=== PATIENT | female | born 1940 | race Caucasian/White ===

== ENCOUNTER 2025-08-28 10:59 | Outpatient (REF) | payer MEDICARE, SELFPAY ==
--- OUTSIDE RECORDS SUMMARY | 2025-08-28 13:24 | XMS_ITS | Encounter Summary ---
Author Organization [facility] Address [address] [facility] [address] [place] [address] Phone Care Team Providers Care Business Solutions Analyst Name Role Phone Doris Michelle MD Primary Care Provider [phone] Sharri Rivera MD Unavailable [phone] Lexx Duarte DO Primary Care Provider Encounter Details Date Type Department Care Team (Late st Contact Info) Description 09/13/2022 Procedure Pass [facility], Ct Scan - [address] [address] Social History Tobacco Use Types Packs/Day Years Used Date Smoking Tobacco: Former Cigarettes Q uit: 1984 Smokeless Tobacco: Never Alcohol Use Standard Drinks/Week Comments Not Currently 0 (1 standard drink = 0.6 oz pur e alcohol) Comments No Sex and Gender Information Value Date Recorded Sex Assigned at Female 06/29/2021 11:50 AM EDT Legal Sex Female 10:12 PM EDT Gender Identity Female 06/29/2021 11:50 AM EDT Sexual Orientation Not on file documented as of this encounter Functional Status * Calculated C-SSRS Risk Score (Lifetime/Recent) Answer Date of Assessment Author No Risk Indicated 09/14/2022 1:15 AM Zohra Olivarez RN * [place] Suicide Severity Rating Scale (Screener/Recent Self-Report) Question Answer Date of Assessment Author 1. Wish to be (Past 1 Month) No 09/14/2022 1:15 AM Kp Singh RN 2. Non-Specific Active Suici abdias Thoughts (Past 1 Month) No 09/14/2022 1:15 AM Brien Singh, HAILEE 6. Suicidal Behavior (Lifetime) No 1:15 AM Zohra Singh, HAILEE documented as of this encounter Plan of Treatment Upcoming Encounters Date Type Department Care Team (Late st Contact Info) Description 04/28/2025 Procedure Pass [facility] [address] [address] 10/28/2025 2:00 PM EST Appointment [facility] [address] [address] Golden Molina, DO [address] [place] [address] 11/07/2025 11:30 AM EST Office Visit [facility] [address] [place] [address] Unknown, Unknown, Lana Lu PA-C [address] [address] [email or web address] 11/18/2025 12:45 PM EST Office Visit [facility] [address] [place] [address] 3rd Floor, [address] [place] [address] Golden Molina DO [address] [address] documented as of this encounter Visit Diagnoses Not on filedocumented in this encounter Care Teams Business Solutions Analyst Relationship Specialty Start Date End Date Doris Michelle MD [address] [place] [address] PCP - General Family Medicine 06/17/1908/24 Lexx Duarte DO [address] [address] PCP - General Family Medicine 09/20/23 Sharri Rivera MD [address] [place] [address] [email or web address] Geriatric Medicine 09/11/23 documented as of this encounter Additional Source Comments The information contained in this document represents components of the legal health record. It is not the complete legal health record.[facility]
--- OUTSIDE RECORDS SUMMARY | 2025-08-28 13:24 | XMS_ITS | Encounter Summary ---
Author Organization [facility] Address [address] [facility] [address] [place] [address] Phone Care Team Providers Care Senior Product Analyst Name Role Phone Doris Michelle MD Primary Care Provider [phone] Sharri Rivera MD Unavailable [phone] Lexx Duarte DO Primary Care Provider Encounter Details Date Type Department Care Team (Late st Contact Info) Description 09/13/2022 Procedure Pass [facility], Ct Scan - [address] [address] Social History Tobacco Use Types Packs/Day Years [...] 09/14/2022 1:15 AM Zohra Olivarez RN * [place] Suicide Severity Rating Scale (Screener/Recent Self-Report) Question [...] Info) Description 04/28/2025 Procedure Pass [facility] [address] [address] 10/28/2025 2:00 PM EST Appointment [facility] [address] [address] Golden Molina, DO [address] [place] [address] [email or web address] 11/07/2025 11:30 AM EST Office Visit [facility] [address] [place] [address] Unknown, Unknown, Lana Lu PA-C [address] [address] [email or web address] 11/18/2025 12:45 PM EST Office Visit [facility] [address] [place] [address] 3rd Floor, [address] [place] [address] Golden Molina DO [address] [address] [email or web address] documented as of this encounter Visit Diagnoses Not on filedocumented in this encounter Care Teams Senior Product Analyst Relationship Specialty Start Date End Date Doris Michelle MD [address] [place] [address] [email or web address] PCP - General Family Medicine 06/17/1908/24 Lexx Duarte DO [address] [address] PCP - General Family Medicine 09/20/23 Sharri Rivera MD [address] [place] [address] [email or web address] Geriatric Medicine 09/11/23 documented as of this encounter Additional Source Comments The information contained in this document represents components of the legal health record. It is not the complete legal health record.[facility]
--- OUTSIDE RECORDS SUMMARY | 2025-08-28 13:24 | XMS_ITS | Encounter Summary ---
Author Organization [facility] Address [address] [facility] [address] [place] [address] Phone Care Team Providers Care Acid Purifier Name Role Phone Doris Michelle MD Primary Care Provider [phone] Sharri Rivera MD Unavailable [phone] Lexx Duarte DO Primary Care Provider Encounter Details Date Type Department Care Team (Late st Contact Info) Description 08/08/2022 Procedure Pass [facility], Ct Scan - [address] [address] Social History Tobacco Use Types Packs/Day Years [...] on file documented as of this encounter Plan of Treatment Upcoming Encounters Date Type Department Care Team (Late st Contact Info) Description 04/28/2025 Procedure Pass [facility] [address] [place] [address] 10/28/2025 2:00 PM EST Appointment Echo [facility] [address] [place] [address] Golden Molina, DO [address] [address] 11/07/2025 11:30 AM EST Office Visit [facility] 10 [place] [address] Unknown, Unknown, Lana Lu PA-C [address] [address] [email or web address] 11/18/2025 12:45 PM EST Office Visit [facility] 22 [facility] 3rd Floor, [address] [place] [address] Golden Molina, DO [address] [address] documented as of this encounter Visit Diagnoses Not on filedocumented in this encounter Care Teams Acid Purifier Relationship Specialty Start Date End Date Doris Michelle MD [address] [place] [address] [email or web address] PCP - General Family Medicine 06/17/1908/24 Lexx Duarte DO [address] [address] PCP - General Family Medicine 09/20/23 Sharri Rivera MD [address] [place] [address] [email or web address] Geriatric Medicine 09/11/23 documented as of this encounter Additional Source Comments The information contained in this document represents components of the legal health record. It is not the complete legal health record.[facility]
--- OUTSIDE RECORDS SUMMARY | 2025-08-28 13:24 | XMS_ITS | Encounter Summary ---
Author Organization [facility] Address [address] [facility] [address] [place] [address] Phone Care Team Providers Care Insolvency Consultant Name Role Phone Doris Michelle MD Primary Care Provider [phone] Sharri Rivera MD Unavailable [phone] Lexx Duarte DO Primary Care Provider [phone] Reason for Referral * MRI/CAT Scan - Closed Specialty Diagnoses / Procedures Referred By Contjoan t Referred To Contact Radiology Diagnoses Tinnitus, unspecified laterality Repeated falls Other abnormalities of gait and mobility Procedures MRI Brain Doris Michelle MD Phone: tel: fax: [email or web address]:[email or web address] Referral ID Status Reason Start Date Expiration Date Visits Re quested Visits Authorized [id number] Closed 12/11/2019 12/10/2020 1 1 Encounter Details Date Type Department Care Team (Latest Contact Info) Description 12/11/2019 Transcribe Orders Virtual Department [address] [place], [place] [id number] Doris Michelle MD [address] [place], [place] [id number] [email or web address] Tinnitus, unspecified laterality (Primary Dx); Repeated falls; Other abnormalities of gait and mobility Social History Tobacco Use Types Packs/Day Years Used Date Smoking Tobacco: Former Cigarettes Q uit: 1984 Smokeless Tobacco: Never Comments Unknown Sex and Gender Information Value Date Recorded Sex Assigned at Female 06/29/2021 11:50 AM EDT Legal Sex Female 10:12 PM EDT Gender Identity Female 06/29/2021 11:50 AM EDT Sexual Orientation Not on file documented as of this encounter Plan of Treatment Upcoming Encounters Date Type Department Care Team (Late st Contact Info) Description 04/28/2025 Procedure Pass [facility] [address] [place] [address] 10/28/2025 2:00 PM EST Appointment [facility] [address] [place] [address] Golden Molina DO [address] [place] [address] 11/07/2025 11:30 AM EST Office Visit [facility] 10 [place] [address] Unknown, Unknown, Lana Lu PA-C [address] [address] [email or web address] 11/18/2025 12:45 PM EST Office Visit [facility] [address] [place] [address] 3rd Floor, [address] [place] [address] Golden Molina DO [address] [place] [address] documented as of this encounter Results * MRI BRAIN WITH AND WITHOUT CONTRAST (12/20/2019 4:19 PM EST) Anatomical Region Laterality Modality Head Magnetic Resonan ce 12/20/2019 4:35 PM EST Impressions 12/20/2019 4:57 PM EST 1. No enhancing mass within either cerebellopontine angle cistern or internal auditory canal. 2. Loops of both anterior inferior cerebellar arteries extend into the internal auditory canals. 3. Moderate patchy T2 hyperintense signal is noted within the supratentorial white matter and cody. These probably represent chronic microangiopathic/small vessel ischemic change. POS - [id number] Narrative 12/20/2019 4:57 PM EST MRI BRAIN WITH AND WITHOUT CONTRAST Outside Radiology Order tinnitus. TECHNIQUE: MRI of the brain was performed without and with intravenous gadolinium contrast material utilizing multiple pulse sequences 12/20/2019. IAC sequences were obtained. COMPARISON: No prior studies are available for comparison at the time of interpretation. FINDINGS: BRAIN: The flow voids through the [place] are maintained, and there is no restricted diffusion or abnormal susceptibility artifact. Patchy T2 hyperintense signal within the supratentorial white matter and cody are present. The ventricles are normal in size. Mild prominence of the sulci. No extra-axial fluid collection, and the cervicomedullary junction is unremarkable. On the axial FIESTA images, loops of both anterior inferior cerebellar arteries extending into the internal auditory canals. These are degraded by patient motion. The postcontrast images through the internal auditory canals are also degraded by motion, but no definite enhancing lesion is present within either cerebellopontine angle cistern or internal auditory canal. There is no abnormal intracranial enhancement. ORBITS: Unremarkable. EXTRACRANIAL SOFT TISSUES: Unremarkable. Procedure Note Myles Mitchell MD - 12/20/2019 MRI BRAIN WITH AND WITHOUT CONTRAST Outside Radiology Order tinnitus. TECHNIQUE: MRI of the brain was performed without and with intravenousgadolinium contrast material utilizing multiple pulse [id number]/28/2020. IAC sequences were obtained. COMPARISON: No prior studies are available for comparison at the time ofinterpretation. FINDINGS: BRAIN: The flow voids through the [place] are maintained, andthere is no restricted diffusion or abnormal susceptibility artifact.Patchy T2 hyperintense signal within the supratentorial white matter andpons are present. The ventricles are normal in size. Mild prominence of the sulci. Noextra-axial fluid collection, and the cervicomedullary junction isunremarkable. On the axial FIESTA images, loops of both anterior inferior cerebellararteries extending into the internal auditory canals. These are degradedby patient motion. The postcontrast images through the internal auditorycanals are also degraded by motion, but no definite enhancing lesion ispresent within either cerebellopontine angle cistern or internal auditorycanal. There is no abnormal intracranial enhancement. ORBITS: Unremarkable. EXTRACRANIAL SOFT TISSUES: Unremarkable. IMPRESSION: 1. No enhancing mass within either cerebellopontine angle cistern orinternal auditory canal. 2. Loops of both anterior inferior cerebellar arteries extend into theinternal auditory canals. 3. Moderate patchy T2 hyperintense signal is noted within thesupratentorial white matter and cody. These probably represent chronicmicroangiopathic/small vessel ischemic change. POS - [id number] Doris Michelle MD IMG MR HEAD/NECK Final Re sult documented in this encounter Visit Diagnoses Diagnosis Tinnitus, unspecified laterality- Primary Repeated falls Other abnormalities of gait and mobility Tinnitus, unspecified laterality Repeated falls Other abnormalities of gait and mobility documented in this encounter Care Teams Insolvency Consultant Relationship Specialty Start Date End Date Doris Michelle MD [address] [place] [address] [email or web address] PCP - General Family Medicine 06/17/1908/24 Lexx Duarte DO [address] [address] PCP - General Family Medicine 09/20/23 Sharri Rivera MD [address] [place] [address] [email or web address] Geriatric Medicine 09/11/23 documented as of this encounter Additional Source Comments The information contained in this document represents components of the legal health record. It is not the complete legal health record.[facility]
--- OUTSIDE RECORDS SUMMARY | 2025-08-28 13:24 | XMS_ITS | Encounter Summary ---
Author Organization [facility] Address [address] [facility] [address] [place] [address] Phone Care Team Providers Care Mold Hoister Name Role Phone Katerin Toussaint MD Primary Care Provider [phone] Doris Michelle MD Primary Care Provider [phone] Sharri Rivera MD Unavailable [phone] Lexx Duarte DO Primary Care Provider [phone] Encounter Details Date Type Department Care Team (Late st Contact Info) Description 11/19/2018 Procedure Pass OR Admitting Dept - Virtual Department 30 [place] [address] Social History Tobacco Use Types Packs/Day Years [...] Info) Description 04/28/2025 Procedure Pass [facility] [address] [place] [address] 10/28/2025 2:00 PM EST Appointment Echo Lab [address] [place] [address] Golden Molina, 22 [facility] [address] [place] [address] 11/07/2025 11:30 AM EST Office Visit [facility] 10 [place] [address] Unknown, Unknown, Lana Lu PA-C [address] [address] [email or web address] 11/18/2025 12:45 PM EST Office Visit [facility] 22 [facility] 3rd Floor, [address] [place] [address] Golden Molina DO [address] [address] documented as of this encounter Visit Diagnoses Not on filedocumented in this encounter Care Teams Mold Hoister Relationship Specialty Start Date End Date Katerin Toussaint MD [email or web address] PCP - General 08/08/17 06/16/19 Doris Michelle MD [address] [place] [address] [email or web address] PCP - General Family Medicine 06/17/1908/24 Lexx Duarte DO [address] [address] PCP - General Family Medicine 09/20/23 Sharri Rivera MD [address] [place] [address] [email or web address] Geriatric Medicine 09/11/23 documented as of this encounter Additional Source Comments The information contained in this document represents components of the legal health record. It is not the complete legal health record.[facility]
--- OUTSIDE RECORDS SUMMARY | 2025-08-28 13:24 | XMS_ITS | Encounter Summary ---
Author Organization [facility] Address [address] [facility] [address] [place] [address] Phone Care Team Providers Care Waste Water Plant Operator Name Role Phone Katerin Toussaint MD Primary Care Provider [phone] Doris Michelle MD Primary Care Provider [phone] Sharri Rivera MD Unavailable [phone] Lexx Duarte DO Primary Care Provider Encounter Details Date Type Department Care Team (Latest Contact Info) Description 06/07/2018 Transcribe Orders Virtual Department 30 [place] [address] Carlos Latham MD [address] [place] [address] [place] [phone] Pre-operative examination (Primary Dx) Social History Tobacco Use Types Packs/Day Years [...] Info) Description 04/28/2025 Procedure Pass [facility] [place] [address] [place] [address] 10/28/2025 2:00 PM EST Appointment [facility] [address] [place] [address] Silvestre Molina, DO 22 [facility] [address] [place] [address] 11/07/2025 11:30 AM EST Office Visit [facility] [address] [place] [address] Unknown, Unknown, Lana Lu PA-C [address] [address] [email or web address] 11/18/2025 12:45 PM EST Office Visit [facility] [address] [place] [address] 3rd Floor, [address] [place] [address] Silvestre Molina, DO 22 [facility] [address] [place] [address] documented as of this encounter Results * ECG 12-LEAD (06/27/2018 1:42 PM EDT) Ventricular Rate EKG/MIN 68 BPM [facility] Atrial Rate 68 BPM [facility] SD Interval 150 ms [facility] QRS Duration 128 ms [facility] QT Interval 462 ms [facility] QTC Interval 491 ms [facility] P Hubbard 41 degrees [facility] R Wave Hubbard -64 degrees [facility] T Wave [place] 53 degrees [facility] 06/27/2018 1:42 PM EDT 06/29/2018 8:43 AM EDT Narrative [facility] - 06/29/2018 8:43 AM EDT Normal sinus rhythm Right bundle branch block Left anterior fascicular block Bifascicular block Moderate voltage criteria for LVH, may be normal variant Cannot rule out Septal infarct (cited on or before 08-APR-2014) Abnormal ECG When compared with ECG of 08-APR-2014 13:48, Questionable change in initial forces of Septal leads T wave inversion no longer evident in Inferior leads Confirmed by SILVESTRE GUTIERREZ MD ([id number]) on 06/29/2018 8:43:34 AM Carlos Latham MD ECG ORDERABLES Final Result [facility] documented in this encounter Visit Diagnoses Diagnosis Pre-operative examination- Primary Unspecified pre-operative examination Pre-operative examination Unspecified pre-operative examination documented in this encounter Care Teams Waste Water Plant Operator Relationship Specialty Start Date End Date Katerin Toussaint MD [email or web address] PCP - General 08/08/17 06/16/19 Doris Michelle MD [address] [place] [address] [email or web address] PCP - General Family Medicine 06/17/1908/24 Lexx Duarte DO [address] [address] PCP - General Family Medicine 09/20/23 Sharri Rivera MD [address] [place] [address] [email or web address] Geriatric Medicine 09/11/23 documented as of this encounter Additional Source Comments The information contained in this document represents components of the legal health record. It is not the complete legal health record.[facility]
--- OUTSIDE RECORDS SUMMARY | 2025-08-28 13:24 | XMS_ITS | Encounter Summary ---
Author Organization [facility] Address [address] [facility] [address] [place] [address] Phone Care Team Providers Care Circular Sawyer Helper Name Role Phone Katerin Toussaint MD Primary Care Provider [phone] Doris Michelle MD Primary Care Provider [phone] Sharri Rivera MD Unavailable [phone] Lexx Duarte DO Primary Care Provider [phone] Encounter Details Date Type Department Care Team (Late st Contact Info) Description 06/13/2019 Ancillary Orders Virtual Department 30 [place], [place] [id number] System, Provider Not In, [place] [address] Social History Tobacco Use Types Packs/Day Years [...] Encounters Date Type Department Care Team (Late Contact Info) Description 04/28/2025 Procedure Pass [facility] [address] [place] [address] 10/28/2025 2:00 PM EST Appointment Echo Lab [address] [place] [address] Golden Molina DO 22 [facility] [address] [place] [address] 11/07/2025 11:30 AM EST Office Visit [facility] 10 [place] [address] Unknown, Unknown, Lana Lu PA-C [address] [address] [email or web address] 11/18/2025 12:45 PM EST Office Visit [facility] 22 [facility] 3rd Floor, [address] [place] [address] Golden Molina, DO [address] [address] documented as of this encounter Visit Diagnoses Not on filedocumented in this encounter Care Teams Circular Sawyer Helper Relationship Specialty Start Date End Date Katerin Toussaint MD [email or web address] PCP - General 08/08/17 06/16/19 Doris Michelle MD [address] [place] [address] [email or web address] PCP - General Family Medicine 06/17/1908/24 Lexx Duarte DO [address] [address] PCP - General Family Medicine 09/20/23 Sharri Rivera MD [address] [place] [address] [email or web address] Geriatric Medicine 09/11/23 documented as of this encounter Additional Source Comments The information contained in this document represents components of the legal health record. It is not the complete legal health record.[facility]
--- OUTSIDE RECORDS SUMMARY | 2025-08-28 13:24 | XMS_ITS | Encounter Summary ---
Author Organization [facility] Address [address] [facility] ([place], [place]) [address] [place] [address] Phone Care Team Providers Care Puppy Trainer Name Role Phone Doris Michelle MD Primary Care Provider [phone] Sharri Rivera MD Unavailable [phone] Lexx Duarte DO Primary Care Provider Encounter Details Date Type Department Care Team (Late st Contact Info) Description 09/13/2022 Procedure Pass [facility], Ct Scan - [address] [address] Social History Tobacco Use Types Packs/Day Years [...] 09/14/2022 1:15 AM Zohra Olivarez RN * [place] Suicide Severity Rating Scale (Screener/Recent Self-Report) Question [...] Info) Description 04/28/2025 Procedure Pass [facility] [address] [address] 10/28/2025 2:00 PM EST Appointment [facility] [address] [address] Golden Molina, DO [address] [place] [address] 11/07/2025 11:30 AM EST Office Visit [facility] [address] [place] [address] Unknown, Unknown, Lana Lu PA-C [address] [address] [email or web address] 11/18/2025 12:45 PM EST Office Visit [facility] [address] [place] [address] 3rd Floor, [address] [place] [address] Golden Molina DO [address] [address] documented as of this encounter Visit Diagnoses Not on filedocumented in this encounter Care Teams Puppy Trainer Relationship Specialty Start Date End Date Doris Michelle MD [address] [place] [address] PCP - General Family Medicine 06/17/1908/24 Lexx Duarte DO [address] [address] PCP - General Family Medicine 09/20/23 Sharri Rivera MD [address] [place] [address] [email or web address] Geriatric Medicine 09/11/23 documented as of this encounter Additional Source Comments The information contained in this document represents components of the legal health record. It is not the complete legal health record.[facility]
--- OUTSIDE RECORDS SUMMARY | 2025-08-28 13:25 | XMS_ITS | Encounter Summary ---
Author Organization [facility] Address [address] [facility] [address] [place] [address] Phone Care Team Providers Care Plant Science Professor Name Role Phone Doris Michelle MD Primary Care Provider [phone] Sharri Rivera MD Unavailable [phone] Lexx Duarte DO Primary Care Provider [phone] Encounter Details Date Type Department Care Team (Latest Contact Info) Description 08/16/2021 Transcribe Orders Virtual Department 30 [place] [address] Doris Michelle MD [address] [place] [address] [email or web address] Abnormal findings on diagnostic imaging of other specified body structures (Primary Dx) Social History Tobacco Use Types [...] Info) Description 04/28/2025 Procedure Pass [facility] [place] [address] [place] [address] 10/28/2025 2:00 PM EST Appointment [facility] [address] [place] [address] Golden Molina, DO [address] [address] 11/07/2025 11:30 AM EST Office Visit [facility] 10 [place] [address] Unknown, Unknown, Lana Lu PA-C [address] [address] [email or web address] 11/18/2025 12:45 PM EST Office Visit [facility] [address] 3rd Floor, [address] [place] [address] Golden Molina DO [address] [place] [address] documented as of this encounter Visit Diagnoses Diagnosis Abnormal findings on diagnostic imaging of other specified body structures- Primary documented in this encounter Care Teams Plant Science Professor Relationship Specialty Start Date End Date Doris Michelle MD [address] [place] [address] [email or web address] PCP - General Family Medicine 06/17/1908/24 Lexx Duarte DO [address] [address] PCP - General Family Medicine 09/20/23 Sharri Rivera MD [address] [place] [address] [email or web address] Geriatric Medicine 09/11/23 documented as of this encounter Additional Source Comments The information contained in this document represents components of the legal health record. It is not the complete legal health record.[facility]
--- OUTSIDE RECORDS SUMMARY | 2025-08-28 13:25 | XMS_ITS | Encounter Summary ---
Author Organization [facility] Address [address] [facility] [address] [place] [address] Phone Care Team Providers Care Seasonal Retail Merchandiser Name Role Phone Sharri Rivera MD Unavailable [phone] Lexx Duarte DO Primary Care Provider Encounter Details Date Type Department Care Team (Late st Contact Info) Description 09/25/2024 Procedure Pass [facility] [address] [place] [address] Social History Tobacco Use Types Packs/Day Years Used Date Smoking Tobacco: Former Cigarettes Q uit: 1984 Smokeless Tobacco: Never Alcohol Use Standard Drinks/Week Comments Not Currently 0 (1 standard drink = 0.6 oz pur e alcohol) Education Answer Date Recorded Are you interested in more education? Not on timbo e 02/17/2023 Are you concerned about learning? Not on file 02/17/2023 No 02/17/2023 No 02/17/2023 Digital Access Answer Date Recorded No 03/18/2023 No 03/18/2023 Reliable internet access at home? Not on file 03/18/2023 Device with a working camera? Not on file Comments No Sex and Gender Information Value Date Recorded Sex Assigned at Female 06/29/2021 11:50 AM EDT Legal Sex Female 10:12 PM EDT Gender Identity Female 06/29/2021 11:50 AM EDT Sexual Orientation Not on file documented as of this encounter Plan of Treatment Upcoming Encounters Date Type Department Care Team (Late st Contact Info) Description 04/28/2025 Procedure Pass [facility] [address] [place] [address] 10/28/2025 2:00 PM EST Appointment [facility] [address] [place] [address] Golden Molina, DO 22 [facility] [address] [place] [address] 11/07/2025 11:30 AM EST Office Visit [facility] 10 [place] [address] Unknown, Unknown, Lana Lu PA-C [address] [address] [email or web address] 11/18/2025 12:45 PM EST Office Visit [facility] [address] [place] [address] 3rd Floor, [address] [place] [address] Golden Molina, DO [address] [address] documented as of this encounter Visit Diagnoses Not on filedocumented in this encounter Additional Health Concerns Assessment Noted Time PHQ-9 Depression Total Score: 6 03/08/20 11:08 AM EDT PHQ-2 Depression Total Score: 1 03/08/20 11:08 AM EDT documented as of this encounter Care Teams Seasonal Retail Merchandiser Relationship Specialty Start Date End Date Lexx Duarte DO [address] [facility] [address] [place] [address] PCP - General Family Medicine 09/20/23 Sharri Rivera MD Geriatric Medicine 09/11/23 documented as of this encounter Additional Source Comments The information contained in this document represents components of the legal health record. It is not the complete legal health record.[facility]
--- OUTSIDE RECORDS SUMMARY | 2025-08-28 13:25 | XMS_ITS | Encounter Summary ---
Author Organization [facility] Address [address] [place] [address] Phone Care Team Providers Care Photographic Engineer Name Role Phone Doris Michelle MD Primary Care Provider [phone] Sharri Rivera MD Unavailable [phone] Lexx Duarte DO Primary Care Provider [phone] Encounter Details Date Type Department Care Team (Late st Contact Info) Description 04/16/2022 Procedure Pass [facility], Ct Scan - [address] [address] Social History Tobacco Use Types Packs/Day Years [...] Date of Assessment Author No Risk Indicated 04/16/2022 1:38 PM EDT Emily Carrera RN * [place] Suicide Severity Rating Scale (Screener/Recent Self-Report) Question Answer Date of Assessment Author 1. Wish to be (Past 1 Month) No 04/16/2022 1:38 PM EDT Postema, Emily martin RN 2. Non-Specific Active Suicidal Thoughts (Past 1 Month) No 04/16/2022 1:38 PM EDT Postema, Emily martin RN 6. Suicidal Behavior (Lifetime) No 04/16/2022 1:38 PM EDT Debi, Emily martin RN documented as of this encounter Plan of Treatment Upcoming Encounters Date Type Department Care Team (Late st Contact Info) Description 04/28/2025 Procedure Pass [facility] [address] [place] [address] 10/28/2025 2:00 PM EST Appointment [facility] [address] [place] [address] oGlden Molina [address] [address] [email or web address] 11/07/2025 11:30 AM EST Office Visit [facility] [address] [place] [address] Unknown, Unknown, Lana Lu PA-C [address] [place] [address] [email or web address] 11/18/2025 12:45 PM EST Office Visit [facility] [address] 3rd Floor, [address] [place] [address] Golden Molina DO [address] [place] [address] [email or web address] documented as of this encounter Visit Diagnoses Not on filedocumented in this encounter Care Teams Photographic Engineer Relationship Specialty Start Date End Date Doris Michelle MD [address] [place] [address] [email or web address] PCP - General Family Medicine 06/17/1908/24 Lexx Duarte DO [address] [address] PCP - General Family Medicine 09/20/23 Sharri Rivera MD [address] [place] [address] [email or web address] Geriatric Medicine 09/11/23 documented as of this encounter Additional Source Comments The information contained in this document represents components of the legal health record. It is not the complete legal health record.[facility]
--- OUTSIDE RECORDS SUMMARY | 2025-08-28 13:25 | XMS_ITS | Encounter Summary ---
Author Organization [facility] Address [address] [place] [address] Phone Care Team Providers Care Hydroelectric Station Operator Name Role Phone Doris Michelle MD Primary Care Provider [phone] Sharri Rivera MD Unavailable [phone] Lexx Duarte DO Primary Care Provider Encounter Details Date Type Department Care Team (Late st Contact Info) Description 06/29/2021 Procedure Pass [facility] [place] [facility], Ct Scan - [address] [address] Social History Tobacco Use Types Packs/Day Years [...] Date of Assessment Author No Risk Indicated 06/29/2021 11:50 AM EDT Miriam Hampton RN * Long Suicide Severity Rating Scale (Screener/Recent Self-Report) Question Answer Date of Assessment Author 1. Wish to be (Past 1 Month) No 021 11:50 AM EDT Miriam Ma RN 2. Non-Specific Active Suici abdias Thoughts (Past 1 Month) No 06/29/2021 11:50 AM EDT Mita Ma RN 6. Suicidal Behavior (Lifetime) No 11:50 AM EDT Miriam Ma, RN documented as of this encounter Plan of Treatment Upcoming Encounters Date Type Department Care Team (Late st Contact Info) Description 04/28/2025 Procedure Pass [facility] [address] [place] [address] 10/28/2025 2:00 PM EST Appointment [facility] [address] [address] Golden Molina DO [address] [place] [address] [email or web address] 11/07/2025 11:30 AM EST Office Visit [facility] [address] [place] [address] Unknown, Unknown, Lana Lu PA-C [address] [place] [address] [email or web address] 11/18/2025 12:45 PM EST Office Visit [facility] [address] [place] [address] 3rd Floor, [address] [place] [address] Golden Molina DO [address] [place] [address] [email or web address] documented as of this encounter Visit Diagnoses Not on filedocumented in this encounter Care Teams Hydroelectric Station Operator Relationship Specialty Start Date End Date Doris Michelle MD [address] [place] [address] [email or web address] PCP - General Family Medicine 06/17/1908/24 Lexx Duarte DO [address] [address] PCP - General Family Medicine 09/20/23 Sharri Rivera MD [address] [place] [address] [email or web address] Geriatric Medicine 09/11/23 documented as of this encounter Additional Source Comments The information contained in this document represents components of the legal health record. It is not the complete legal health record.[facility]
--- OUTSIDE RECORDS SUMMARY | 2025-08-28 13:25 | XMS_ITS | Encounter Summary ---
Author Organization [facility] Address [address] [place] [address] Phone Care Team Providers Care Lane Attendant Name Role Phone Doris Michelle MD Primary Care Provider [phone] Sharri Rivera MD Unavailable [phone] Lexx Duarte DO Primary Care Provider Encounter Details Date Type Department Care Team (Late st Contact Info) Description 04/16/2022 Procedure Pass [facility], Ct Scan - [address] [address] Social History Tobacco Use Types Packs/Day Years [...] 1:38 PM EDT Emily Carrera RN * [place] Suicide Severity Rating Scale (Screener/Recent Self-Report) Question [...] Info) Description 04/28/2025 Procedure Pass [facility] [address] [place] [address] 10/28/2025 2:00 PM EST Appointment [facility] [address] [place] [address] Golden Molina [address] [address] 11/07/2025 11:30 AM EST Office Visit [facility] [address] [place] [address] Unknown, Unknown, Lana Lu PA-C [address] [place] [place] [address] [email or web address] 11/18/2025 12:45 PM EST Office Visit [facility] [address] 3rd Floor, [address] [place] [address] Golden Molina DO [address] [place] [address] documented as of this encounter Visit Diagnoses Not on filedocumented in this encounter Care Teams Lane Attendant Relationship Specialty Start Date End Date Doris Michelle MD [address] [place] [address] [email or web address] PCP - General Family Medicine 06/17/1908/24 Lexx Duarte DO [address] [address] PCP - General Family Medicine 09/20/23 Sharri Rivera MD [address] [place] [address] [email or web address] Geriatric Medicine 09/11/23 documented as of this encounter Additional Source Comments The information contained in this document represents components of the legal health record. It is not the complete legal health record.[facility]
--- OUTSIDE RECORDS SUMMARY | 2025-08-28 13:25 | XMS_ITS | Encounter Summary ---
Author Organization [facility] Address [address] [facility] [address] [place] [address] Phone Care Team Providers Care Command And Control Officer Name Role Phone Doris Michelle MD Primary Care Provider [phone] Sharri Rivera MD Unavailable [phone] Lexx Duarte DO Primary Care Provider [phone] Reason for Referral * MRI/CAT Scan - Closed Specialty Diagnoses / Procedures Referred By Contac t Referred To Contact Radiology Diagnoses Minor head trauma Procedures MRI Brain Doris Michelle MD [address] [place] [address] Phone: tel: fax: [email or web address]:[email or web address] Referral ID Status Reason Start Date Expiration Date Visits Re quested Visits Authorized [id number] Closed 01/24/2022 01/24/2023 1 1 Encounter Details Date Type Department Care Team (Latest Contact Info) Description 01/24/2022 Transcribe Orders Virtual Department 30 [place], [place] [id number] Doris Michelle MD [address] [place] [address] [email or web address] Minor head trauma (Primary Dx) Social History Tobacco Use Types [...] Info) Description 04/28/2025 Procedure Pass [facility] [address] [place] [address] 10/28/2025 2:00 PM EST Appointment Echo [facility] [address] [place] [address] Golden Molina, DO [address] [place] [address] [place] [address] [email or web address] 11/07/2025 11:30 AM EST Office Visit [facility] 10 [place] [address] Unknown, Unknown, Lana Lu PA-C [address] [address] [email or web address] 11/18/2025 12:45 PM EST Office Visit [facility] [address] [place] [address] 3rd Floor, [address] [place] [address] Golden Molina, DO 22 [facility] [address] [place] [address] [email or web address] documented as of this encounter Results * MRI BRAIN WITHOUT CONTRAST (02/15/2022 4:17 PM EDT) Anatomical Region Laterality Modality Head Magnetic Resonan ce 02/15/2022 6:57 PM EDT Impressions 02/15/2022 7:02 PM EDT No acute infarct, mass lesion or hemorrhage. Narrative 02/15/2022 7:02 PM EDT MRI BRAIN WITHOUT CONTRAST TECHNIQUE: Multi-sequence, multi-planar MRI of the brain was performed without intravenous contrast. COMPARISON: Head CT on June 29, 2021. Brain MRI on December 20, 2019 FINDINGS: Brain Parenchyma: Few foci of gradient artifact in the left basal ganglia (for example 7:51, 7:46) appears to reflect old blood products. No evidence of acute hemorrhage. No evidence of acute infarct or mass. Moderate amount of confluent foci of T2 hyperintensity in the white matter, likely a manifestation of chronic small vessel disease. Ventricular System and Extra-Axial Spaces: The ventricles and cortical sulci are prominent, as commonly seen in patients of this age. No evidence of midline shift or hydrocephalus. Extracranial Structures: Arterial flow voids in the skull base are present. Procedure Note Renetta Hess MD - 02/15/2022 MRI BRAIN WITHOUT CONTRAST TECHNIQUE: Multi-sequence, multi-planar MRI of the brain was performed withoutintravenous contrast. COMPARISON: Head CT on June 29, 2021. Brain MRI on November FINDINGS: Brain Parenchyma: Few foci of gradient artifact in the left basal ganglia(for example 7:51, 7:46) appears to reflect old blood products. Noevidence of acute hemorrhage. No evidence of acute infarct or mass.Moderate amount of confluent foci of T2 hyperintensity in the whitematter, likely a manifestation of chronic small vessel disease. Ventricular System and Extra-Axial Spaces: The ventricles and corticalsulci are prominent, as commonly seen in patients of this age. No evidenceof midline shift or hydrocephalus. Extracranial Structures: Arterial flow voids in the skull base arepresent. IMPRESSION: No acute infarct, mass lesion or hemorrhage. Doris Michelle MD IMG MR HEAD/NECK Final Re sult documented in this encounter Visit Diagnoses Diagnosis Minor head trauma- Primary Minor head trauma documented in this encounter Care Teams Command And Control Officer Relationship Specialty Start Date End Date Doris Michelle MD [address] [place] [address] [email or web address] PCP - General Family Medicine 06/17/1908/24 Lexx Duarte DO [address] [address] PCP - General Family Medicine 09/20/23 Sharri Rivera MD [address] [place] [address] [email or web address] Geriatric Medicine 09/11/23 documented as of this encounter Additional Source Comments The information contained in this document represents components of the legal health record. It is not the complete legal health record.[facility]
--- OUTSIDE RECORDS SUMMARY | 2025-08-28 13:25 | XMS_ITS | Encounter Summary ---
Author Organization [facility] Address [address] [place] [address] Phone Care Team Providers Care School Standards Coach Name Role Phone Doris Michelle MD Primary Care Provider [phone] Sharri Rivera MD Unavailable [phone] Lexx Duarte DO Primary Care Provider Encounter Details Date Type Department Care Team (Late st Contact Info) Description 06/29/2021 Procedure Pass [facility], Ct Scan - [address] [address] Social History Tobacco Use Types Packs/Day Years [...] 11:50 AM EDT Miriam Hampton RN * [place] Suicide Severity Rating Scale (Screener/Recent Self-Report) Question [...] Info) Description 04/28/2025 Procedure Pass [facility] [address] [place] [address] 10/28/2025 2:00 PM EST Appointment Echo Lab [address] [address] Golden Molina DO [address] [place] [address] [email or web address] 11/07/2025 11:30 AM EST Office Visit [facility] [address] [place] [address] Unknown, Unknown, Lana Lu PA-C [address] [place] [address] [email or web address] 11/18/2025 12:45 PM EST Office Visit [facility] [address] [place] [address] 3rd Floor, [address] [place] [address] Golden Molina DO [address] [place] [address] [email or web address] documented as of this encounter Visit Diagnoses Not on filedocumented in this encounter Care Teams School Standards Coach Relationship Specialty Start Date End Date Doris Michelle MD [address] [place] [address] [email or web address] PCP - General Family Medicine 06/17/1908/24 Lexx Duarte DO [address] [address] PCP - General Family Medicine 09/20/23 Sharri Rivera MD [address] [place] [address] [email or web address] Geriatric Medicine 09/11/23 documented as of this encounter Additional Source Comments The information contained in this document represents components of the legal health record. It is not the complete legal health record.[facility]
--- OUTSIDE RECORDS SUMMARY | 2025-08-28 13:25 | XMS_ITS | Encounter Summary ---
Author Organization [facility] Address [address] [facility] [address] [place] [address] Phone Care Team Providers Care Flea Market Seller Name Role Phone Doris Michelle MD Primary Care Provider [phone] Sharri Rivera MD Unavailable [phone] Lexx Duarte DO Primary Care Provider Encounter Details Date Type Department Care Team (Late st Contact Info) Description 01/24/2022 Procedure Pass [address] [address] Social History Tobacco Use Types Packs/Day Years [...] Info) Description 04/28/2025 Procedure Pass [facility] [address] [place] [address] 10/28/2025 2:00 PM EST Appointment Echo [facility] [address] [place] [address] Golden Molina, DO 22 [facility] [address] [place] [address] 11/07/2025 11:30 AM EST Office Visit [facility] 10 [place] [address] Unknown, Unknown, Lana Lu PA-C [address] [address] [email or web address] 11/18/2025 12:45 PM EST Office Visit [facility] 22 [facility] 3rd Floor, [address] [place] [address] Golden Molina, DO [address] [address] documented as of this encounter Visit Diagnoses Not on filedocumented in this encounter Care Teams Flea Market Seller Relationship Specialty Start Date End Date Doris Michelle MD [address] [place] [address] [email or web address] PCP - General Family Medicine 06/17/1908/24 Lexx Duarte DO [address] [address] PCP - General Family Medicine 09/20/23 Sharri Rivera MD [address] [place] [address] [email or web address] Geriatric Medicine 09/11/23 documented as of this encounter Additional Source Comments The information contained in this document represents components of the legal health record. It is not the complete legal health record.[facility]
--- OUTSIDE RECORDS SUMMARY | 2025-08-28 13:25 | XMS_ITS | Encounter Summary ---
Author Organization [facility] Address [address] [facility] [address] [place] [address] Phone Care Team Providers Care Gunner'S Mate G Name Role Phone Katerin Toussaint MD Primary Care Provider [phone] Doris Michelle MD Primary Care Provider Sharri Rivera MD Unavailable [phone] Lexx Duarte DO Primary Care Provider Encounter Details Date Type Department Care Team (Latest Contact Info) Description 06/27/2018 Transcribe Orders [facility] Phleb Main [address] [place] [address] Carlos Latham MD [address] [place] [address] [address] [place] [address] Pre-operative laboratory examination (Primary Dx); Other abnormal glucose; Anemia, unspecified type; Avitaminosis D Social History Tobacco Use Types Packs/Day Years [...] Info) Description 04/28/2025 Procedure Pass [facility] [place] [address] [place] [address] 10/28/2025 2:00 PM EST Appointment Echo Lab [address] [place] [address] Golden Molina, DO 22 [facility] [address] [place] [address] [email or web address] 11/07/2025 11:30 AM EST Office Visit [facility] 10 [place] [address] Unknown, Unknown, Lana Lu PA-C [address] [address] [email or web address] 11/18/2025 12:45 PM EST Office Visit [facility] [address] [place] [address] 3rd Floor, [address] [place] [address] Golden Molina, DO [address] [address] [email or web address] documented as of this encounter Results * Urine culture (06/27/2018 2:41 PM EDT) Specimen Source/ Description URINE URINE [facility] Special Requests None [facility] GRAM STAIN NO ORGANISMS SEEN [facility] Culture/Test 10,000 to 100,000 colony forming units per ml MIXED PETRONA (3 OR MORE COLONY TYPES) Culture indicates contamination . Please resubmit if necessary. [facility] Report Status 06/28/2018 FINAL [facility] Urine (Urine) 06/27/2018 2:4 1 PM EDT 06/27/2018 2:46 PM EDT Carlos Latham MD LAB MICROBIOLOGY CULTU RE ORDERABLES Final Result [facility] [address] [place] [address] * (ABNORMAL) Urinalysis with sediment (06/27/2018 2:41 PM EDT) WBC 0-4(A) NONE SEEN /hpf [facility] RBC 0-2(A) NONE SEEN /hpf [facility] URINE EPITHELIAL 0-4(A) NONE SEEN [facility] MUCUS Trace(A) NONE SEEN /hpf [facility] BACTERIA Trace(A) NONE SEEN [facility] COLOR Yellow Yellow [facility] CLARITY Clear [facility] GLUCOSE Negative Negative [facility] BILI Negative Negative [facility] KETONES Negative Negative [facility] SPECIFIC GRAVITY 1.015 1.005 - 1.030 [facility] BLOOD Negative Negative [facility] PH 6.0 5.0 - 8.0 [facility] Protein-UA Negative Negative [facility] NITRITE Negative Negative [facility] Leukocyte esterase, ur 1+(A) Negative [facility] Urine (Urine) 06/27/2018 2:4 1 PM EDT 06/27/2018 2:46 PM EDT Carlos Latham MD LAB URINE ORDERABLES F inal Result Performing Organization Address City/[facility]/ZIP Co de Phone Number [address] [address] * 25-OH vitamin D (06/27/2018 2:41 PM EDT) 25 OH VIT D (TOTAL) 43 30 - 60 ng/mL [facility] Blood 06/27/2018 2:41 PM EDT 06/27/2018 2:45 PM EDT Carlos Latham MD LAB BLOOD BKR ORDERABL ES Final Result Performing Organization Address [facility]/ZIP Co de Phone Number [address] [address] * PTT (06/27/2018 2:41 PM EDT) APTT 36.0 25.1 - 36.5 sec [facility] Comment:APTT response to unf ractionated heparin concentrations between 0.3 and 0.7 IU/mL is typically 54.0-94.0 seconds in uncomplicated cases. The Anti-Xa assay is the preferred method. Blood 06/27/2018 2:41 PM EDT 06/27/2018 2:45 PM EDT Carlos Latham MD LAB BLOOD BKR ORDERABL ES Final Result Performing Organization Address [facility] Co de Phone Number [address] [address] * PT-INR (06/27/2018 2:41 PM EDT) PT 12.6 10.2 - 12.9 sec [facility] INR 1.1 0.9 - 1.1 [facility] Comment:Therapeutic range fo r oral Vitamin K antagonists: 2.0-3.5 Blood 06/27/2018 2:41 PM EDT 06/27/2018 2:45 PM EDT Carlos Latham MD LAB BLOOD BKR ORDERABL ES Final Result Performing Organization Address [facility] Co de Phone Number [address] [address] * Hemoglobin A1c (06/27/2018 2:41 PM EDT) HEMOGLOBIN A1C 5.0 4.3 - 5.8 % [facility] Blood 06/27/2018 2:41 PM EDT 06/27/2018 2:45 PM EDT Carlos Latham MD LAB BLOOD BKR ORDERABL ES Final Result Performing Organization Address [facility] Co de Phone Number [address] [address] * (ABNORMAL) CBC and differential (06/27/2018 2:41 PM EDT) WBC 10.76 3.40 - 11.20 K/uL [facility] RBC 5.15(H) 3.80 - 4.80 M/uL [facility] HGB 13.8 12.0 - 15.0 g/dL [facility] HCT 43.6 36.0 - 46.0 % [facility] PLT 244 130 - 400 K/uL [facility] MCV 84.7 79.0 - 98.0 fL [facility] MCH 26.8(L) 27.0 - 34.8 pg [facility] MCHC 31.7 31.5 - 36.0 g/dL [facility] RDW 13.3 10.8 - 14.6 % [facility] MPV 10.4 9.4 - 12.4 fl [facility] NRBC 0.00 /100 WBCs [facility] ABSOLUTE NRBC 0.00 K/uL [facility] DIFF METHOD Auto [facility] NEUTS 56.2 45.30 - 77.70 % [facility] LYMPHS 33.9 12.30 - 39.70 % [facility] MONOS 6.8 4.10 - 12.80 % [facility] EOS 2.1 0 - 7.2 % [facility] BASOS 0.7 0 - 2.80 % [facility] Granulocytes, immature (%) 0.3 0.0 - 0.9 % [facility] ABSOLUTE NEUTS 6.05 1.40 - 7.70 K/uL [facility] ABSOLUTE LYMPHS 3.65(H) 0.60 - 3.20 K/uL [facility] ABSOLUTE MONOS 0.73(H) 0.11 - 0.59 K/uL [facility] ABSOLUTE EOS 0.23 0.01 - 0.50 K/uL [facility] ABSOLUTE BASOS 0.07 0.00 - 0.08 K/uL [facility] Granulocytes, immature 0.03 0.00 - 0.05 K/uL [facility] Blood 06/27/2018 2:41 PM EDT 06/27/2018 2:45 PM EDT us Carlos Latham MD LAB BLOOD BKR ORDERABL ES Final Result [facility] [address] [address] * (ABNORMAL) Comprehensive metabolic panel (06/27/2018 2:41 PM EDT) SODIUM 140 133 - 146 mmol/L [facility] POTASSIUM 4.5 3.3 - 5.1 mmol/L [facility] CHLORIDE 100 96 - 108 mmol/L [facility] CO2 29 21 - 35 mmol/L [facility] BUN 21(H) 6 - 19 mg/dL [facility] CREATININE 0.70 0.5 - 1.5 mg/dL [facility] GLUCOSE 94 70 - 99 mg/dL [facility] ALBUMIN 4.0 3.9 - 4.8 g/dL [facility] TOTAL PROTEIN 7.4 6.5 - 8.0 g/dL [facility] CALCIUM 9.4 8.4 - 10.3 mg/dL [facility] ALKALINE PHOSPHATASE 95 39 - 117 U/L [facility] TOTAL BILIRUBIN 0.3 0.0 - 1.2 mg/dL [facility] AST 21 0 - 37 U/L [facility] ALT 21 0 - 40 U/L [facility] GLOBULIN 3.4 1 - 4.8 g/dL [facility] EGFR 84 >59 mL/min/1.7 3m2 [facility] Comment:If patient is black, multiply result by 1.159. Estimated glomerular filtration rate calculated using the CKD-EPI equation. ANION GAP 16 10 - 20 mmol/L [facility] Blood 06/27/2018 2:41 PM EDT 06/27/2018 2:45 PM EDT Carlos Latham MD LAB BLOOD BKR ORDERABL ES Final Result [address] [address] documented in this encounter Visit Diagnoses Diagnosis Pre-operative laboratory examination- Primary Pre-procedural laboratory examination Other abnormal glucose Anemia, unspecified type Avitaminosis D Unspecified vitamin D deficiency documented in this encounter Care Teams Gunner'S Mate G Relationship Specialty Start Date End Date Katerin Toussaint MD [email or web address] PCP - General 08/08/17 06/16/19 Doris Michelle MD [address] [place] [address] [email or web address] PCP - General Family Medicine 06/17/1908/24 Lexx Duarte DO [address] [address] PCP - General Family Medicine 09/20/23 Sharri Rivera MD [address] [place] [address] [email or web address] Geriatric Medicine 09/11/23 documented as of this encounter Additional Source Comments The information contained in this document represents components of the legal health record. It is not the complete legal health record.[facility]
--- OUTSIDE RECORDS SUMMARY | 2025-08-28 13:25 | XMS_ITS | Encounter Summary ---
Author Organization [facility] Address [address] [facility] [address] [place] [address] Phone Care Team Providers Care Hand Mexican Food Maker Name Role Phone Sharri Rivera MD Unavailable [phone] Lexx Duarte DO Primary Care Provider Encounter Details Date Type Department Care Team (Late st Contact Info) Description 10/18/2023 Procedure Pass Echo Lab [place] [place] [address] Social History Tobacco Use Types Packs/Day Years [...] Info) Description 04/28/2025 Procedure Pass Echo Lab [address] [place] [address] 10/28/2025 2:00 PM EST Appointment Echo Lab [address] [place] [address] Golden Molina, DO 22 [facility] [address] [place] [address] [email or web address] 11/07/2025 11:30 AM EST Office Visit [facility] Gastroenterology Clinic [address] [place] [address] Unknown, Unknown, Lana Lu PA-C [address] [address] [email or web address] 11/18/2025 12:45 PM EST Office Visit [facility] [address] [place] [address] 3rd Floor, [address] [place] [address] Golden Molina, DO [address] [address] documented as of this encounter Visit Diagnoses Not on filedocumented in this encounter Additional Health Concerns Assessment Noted Time PHQ-9 Depression Total Score: 6 03/08/20 11:08 AM EDT PHQ-2 Depression Total Score: 1 03/08/20 11:08 AM EDT documented as of this encounter Care Teams Hand Mexican Food Maker Relationship Specialty Start Date End Date Lexx Duarte DO [address] [facility] [address] [place] [address] PCP - General Family Medicine 09/20/23 Sharri Rivera MD Geriatric Medicine 09/11/23 documented as of this encounter Additional Source Comments The information contained in this document represents components of the legal health record. It is not the complete legal health record.[facility]
--- OUTSIDE RECORDS SUMMARY | 2025-08-28 13:25 | XMS_ITS | Encounter Summary ---
Author Organization [facility] Address [address] [place] [address] Phone Care Team Providers Care Interior Painter Name Role Phone Katerin Toussaint MD Primary Care Provider Doris Michelle MD Primary Care Provider [phone] Sharri Rivera MD Unavailable [phone] Lexx Duarte DO Primary Care Provider [phone] Encounter Details Date Type Department Care Team (Late st Contact Info) Description 09/20/2017 Ancillary Orders Virtual Department [address] [place] [address] Katerin Toussaint MD 38 [facility], [address] [place] [id number] [email or web address] Other abnormalities of gait and mobility Social History Tobacco Use Types Packs/Day Years Used Date Smoking Tobacco: Never Assessed Comments Unknown Sex and Gender Information Value Date Recorded Sex Assigned at Female 06/29/2021 11:50 AM EDT Legal Sex Female 10:12 PM EDT Gender Identity Female 06/29/2021 11:50 AM EDT Sexual Orientation Not on file documented as of this encounter Plan of Treatment Upcoming Encounters Date Type Department Care Team (Late Contact Info) Description 04/28/2025 Procedure Pass Echo Lab [place] [address] [place] [address] 10/28/2025 2:00 PM EST Appointment [facility] [place] [place] [address] Golden Molina, [address] [address] 11/07/2025 11:30 AM EST Office Visit [facility] Gastroenterology Clinic 10 [place] [address] Unknown, Unknown, Lana Lu PA-C [address] [address] [email or web address] 11/18/2025 12:45 PM EST Office Visit [facility] [address] 3rd Floor, [address] [place] [address] Golden Molina DO [address] [address] [email or web address] documented as of this encounter Visit Diagnoses Diagnosis Other abnormalities of gait and mobility documented in this encounter Care Teams Interior Painter Relationship Specialty Start Date End Date Katerin Toussaint MD [email or web address] PCP - General 08/08/17 06/16/19 Doris Michelle MD [address] [place] [address] [email or web address] PCP - General Family Medicine 06/17/1908/24 Lexx Duarte DO [address] [address] PCP - General Family Medicine 09/20/23 Sharri Rivera MD [address] [place] [address] [email or web address] Geriatric Medicine 09/11/23 documented as of this encounter Additional Source Comments The information contained in this document represents components of the legal health record. It is not the complete legal health record.[facility]
--- OUTSIDE RECORDS SUMMARY | 2025-08-28 13:25 | XMS_ITS | Encounter Summary ---
Author Organization [facility] Address [address] [facility] [address] [place] [address] Phone Care Team Providers Care Procurement Coordinator Name Role Phone Katerin Toussaint MD Primary Care Provider Doris Michelle MD Primary Care Provider [phone] Sharri Rivera MD Unavailable [phone] Lexx Duarte DO Primary Care Provider Encounter Details Date Type Department Care Team (Late st Contact Info) Description 08/07/2018 Transcribe Orders [facility] Specimen Processing 30 [place] [address] Kwame Beavers MD 38 [facility] [address] [place] [address] [email or web address] Hypertension, unspecified type (Primary Dx); Depression, unspecified depression type Social History Tobacco Use Types Packs/Day Years [...] Info) Description 04/28/2025 Procedure Pass Echo Lab [place] [address] [place] [address] 10/28/2025 2:00 PM EST Appointment Echo Lab [place] [address] [place] [address] Golden Molina, DO 22 [facility] [address] [place] [address] 11/07/2025 11:30 AM EST Office Visit [facility] Gastroenterology Clinic [address] [place] [address] Unknown, Unknown, Lana Lu PA-C [address] [address] [email or web address] 11/18/2025 12:45 PM EST Office Visit [facility] [address] [place] [address] 3rd Floor, [address] [place] [address] Golden Molina, DO [address] [address] documented as of this encounter Results * (ABNORMAL) Comprehensive metabolic panel (08/07/2018 6:05 AM EDT) SODIUM 141 133 - 146 mmol/L [facility] POTASSIUM 4.5 3.3 - 5.1 mmol/L [facility] CHLORIDE 101 96 - 108 mmol/L [facility] CO2 30 21 - 35 mmol/L [facility] BUN 21(H) 6 - 19 mg/dL [facility] CREATININE 0.60 0.5 - 1.5 mg/dL [facility] GLUCOSE 114(H) 70 - 99 mg/dL [facility] ALBUMIN 2.9(L) 3.9 - 4.8 g/dL [facility] TOTAL PROTEIN 5.5(L) 6.5 - 8.0 g/dL [facility] CALCIUM 8.2(L) 8.4 - 10.3 mg/dL [facility] ALKALINE PHOSPHATASE 65 39 - 117 U/L [facility] TOTAL BILIRUBIN 0.5 0.0 - 1.2 mg/dL [facility] AST 17 0 - 37 U/L [facility] ALT 15 0 - 40 U/L [facility] GLOBULIN 2.6 1 - 4.8 g/dL [facility] EGFR 89 >59 mL/min/1.7 3m2 [facility] Comment:If patient is black, multiply result by 1.159. Estimated glomerular filtration rate calculated using the CKD-EPI equation. ANION GAP 15 10 - 20 mmol/L [facility] Blood 08/07/2018 6:05 AM EDT 08/07/2018 9:22 AM EDT us Kwame Beavers MD LAB BLOOD BKR ORDERABLES Final R esult [address] [address] * (ABNORMAL) CBC (08/07/2018 6:05 AM EDT) WBC 9.80 3.40 - 11.20 K/uL [facility] RBC 3.27(L) 3.80 - 4.80 M/uL [facility] HGB 8.9(L) 12.0 - 15.0 g/dL [facility] HCT 28.4(L) 36.0 - 46.0 % [facility] PLT 204 130 - 400 K/uL [facility] MCV 86.9 79.0 - 98.0 fL [facility] MCH 27.2 27.0 - 34.8 pg [facility] MCHC 31.3(L) 31.5 - 36.0 g/dL [facility] RDW 13.8 10.8 - 14.6 % [facility] MPV 11.2 9.4 - 12.4 fl [facility] NRBC 0.00 /100 WBCs [facility] ABSOLUTE NRBC 0.00 K/uL [facility] Blood 08/07/2018 6:05 AM EDT 08/07/2018 9:22 AM EDT us Kwame Beavers MD LAB BLOOD BKR ORDERABLES Final R esult [facility] [address] [place] [address] documented in this encounter Visit Diagnoses Diagnosis Hypertension, unspecified type- Primary Depression, unspecified depression type documented in this encounter Care Teams Procurement Coordinator Relationship Specialty Start Date End Date Katerin Toussaint MD [email or web address] PCP - General 08/08/17 06/16/19 Doris Michelle MD [address] [place] [address] [email or web address] PCP - General Family Medicine 06/17/1908/24 Lexx Duarte DO [address] [address] PCP - General Family Medicine 09/20/23 Sharri Rivera MD [address] [place] [address] [email or web address] Geriatric Medicine 09/11/23 documented as of this encounter Additional Source Comments The information contained in this document represents components of the legal health record. It is not the complete legal health record.[facility]
--- OUTSIDE RECORDS SUMMARY | 2025-08-28 13:26 | XMS_ITS | Clinical Summary ---
Author Organization [facility] Address [address] [employer] [facility] ([place], [place]) [address] [place] [id number] Phone Care Team Providers Care Candy Roller Name Role Phone Sharri Rivera MD Unavailable [phone] Lexx Duarte DO Primary Care Provider Allergies Active Allergy Reactions Criticality Noted Date Comments Lisinopril Cough 08/18/2018 Medications atorvastatin (LIPITOR) 20 MG tablet Take 20 mg by mouth daily. 3 02/07/2018 Active FLUoxetine (PROZAC) 20 MG tablet Take 30 mg by mouth daily. Takes a 20mg and a 10mg tablet for total of 30mg 3 02/07/2018 Active levothyroxine (SYNTHROID, LEVOTHROID) 100 MCG tablet 1 tablet every morning on an empty stomach Active mag hydrox/aluminum hyd/simeth (MAALOX ORAL) Take 30 mL by mouth as needed (HEARTBURN). Active acetaminophen 325 mg Cap Take 650 mg by mouth every 6 (six) hours as needed (pain). 07/05/2019 Active alendronate (FOSAMAX) 70 MG tablet Once yearly for infusion 07/02/2022 Active vit C,B-vyhvaz-gmtv anthin-minerals (PRESERVISION AREDS-2) capsule Take 1 capsule by mouth 2 (two) times a day. Active biotin 1 mg tablet Take 1,000 mcg by mouth daily. Active aspirin 81 mg chewable tablet Take 81 mg by mouth daily. Active cholecalciferol (VITAMIN D3) 2,000 unit tablet Take 1,000 Units by mouth daily. Active vit A/vit C/vit E/zinc/copper (ICAPS AREDS ORAL) Take by mouth. 07/12/2023 Active famotidine (PEPCID) 20 MG tablet Take 20 mg by mouth. 02/13/2024 Active gabapentin (NEURONTIN) 100 MG capsule Take 100 mg by mouth. 02/13/2024 Active furosemide (LASIX) 40 MG tablet TAKE 1 TABLET BY MOUTH EVERY DAY IN THE MORNING 90 tablet 3 06/05/2025 Active losartan (COZAAR) 100 MG tablet Take 1 tablet (100 mg total) by mouth every morning. 90 tablet 3 06/27/2025 Active metoprolol succinate (TOPROL-XL) 25 MG 24 hr tablet Take 0.5 tablets (12.5 mg total) by mouth daily. 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 Fall at home, sequela 10/31/2022 Aneurysm of ascending aorta without rupture 07/23 Assessment & Plan (04/28/2025 11:21 AM EDT): She has a measurement in her a ascending aorta of 4.6 cm unchanged. This is going to be checked twice a year Assessment & Plan (08/08/2022 4:41 PM EDT): Patient was diagnosed to have thoracic ascending aortic aneurysm in September 2021 when she had a routine CT for pulmonary nodule follow-up. Was subsequently seen by a thoracic surgeon but surgery was not advised to be requested a cardiology consultation Patient does not have any features of syndromic thoracic aortic aneurysm like Marfan syndrome, low-grade state syndrome, Lupe Danlos syndrome etc. 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 Indication for surgery for degenerative ascending aortic aneurysm is about 5.[address] showed 4.6 cm we should repeat a CT scan and an echocardiogram to measure the aneurysm correctly and see how much it has grown. The growth rate is more than 5 mm/year then she will become a high risk for rupture and she should be sent for surgery. Risk of rupture from this size to up to 6 cm increases tremendously. The mortality with ruptured aortic aneurysm is very high. John this disease and consequences from rupture etc. I will recommend adding a small dose of beta-rikki regimen like metoprolol succinate 25 mg initially and then increasing to 50 mg daily. Other other antihypertensive medications may be reduced in case if her blood pressure becomes low. Initiation of statin also for atherosclerosis and hyperlipidemia is strongly recommended. Risk of discussed Atherosclerosis of [place] co ronary artery without angina pectoris 08/08/2022 Assessment & Plan (04/28/2025 11:21 AM EDT): Completely asymptomatic at this time Assessment & Plan (08/08/2022 4:45 PM EDT): Multiple risk factors for coronary artery disease including hypertension hyperlipidemia and she also has atherosclerosis of aorta. She is on baby aspirin At present we will check her echo for LV wall motion and then after we know exact size of the aortic aneurysm we we will plan for a Lexiscan stress test. Bifascicular bundle branch block 08/08/2022 Persistent atrial fibrillation 08/08/2022 Assessment & Plan (04/28/2025 11:21 AM EDT): As mentioned completely asymptomatic Assessment & Plan (08/08/2022 4:59 PM EDT): Today's electrocardiogram shows atrial fibrillation heart rate 76 along with right bundle branch block and left axis deviation suggesting bifascicular block. Reviewed her old her electrocardiogram done a year ago which showed sinus rhythm. Unclear when she started to develop atrial fibrillation. Severo Vascor would be at least 5. Hypertension-1, age 81-2, female sex-1, vascular disease presence of atherosclerosis in aorta-1 To her risk of thromboembolism is also high Will need lifelong anticoagulation. Depending on her other medical conditions and if there is no contraindication a Eliquis may be started. Recently her risk of bleeding from aortic aneurysm will remain on the background worrying us always. Patient is exposed to risk of thromboembolism as from atrial fibrillation and risk of rupture from thoracic aortic aneurysm after adequate anticoagulation we may consider BATOOL with cardioversion. Encounters Date Type Department Care Team Description 07/25/2025 2:55 PM EDT - 07/25/2025 11:59 PM EDT Hospital Encounter [facility] [address] [place] [address] Golden Molina, DO Discharge Disposition: Home or Self Care 07/08/2025 Refill [facility] [address], [address] [place] [address] [place] Medication Refill 06/25/2025 Refill [facility] [address], [address] [place] [address] Golden Molina, DO Medication Refill 06/02/2025 Refill [facility] [address], [address] [place] [address] Luis Hanna MD Medication Refill from Last 3 Months Immunizations Immunization Administration Dates Next Due Tdap 04/16/2022 Social History Tobacco Use Types Packs/Day Years Used Date Smoking Tobacco: Former Cigarettes Q uit: 1984 Smokeless Tobacco: Never Tobacco Cessation:Counseling Given: Not Answered Alcohol Use Standard Drinks/Week Comments Not Currently [...] AM EDT Sexual Orientation Not on file Last Filed Vital Signs Vital Sign Reading Time Taken Comments Blood Pressure 124/66 04/28/2025 11:04 AM EDT Pulse 66 04/28/2025 11:04 AM EDT Temperature 36.8 C (98.2 F) 09/14/2022 1:14 AM EST Respiratory Rate 16 09/14/2022 1:14 AM EST Oxygen Saturation 98% 04/28/2025 11:04 AM EDT Inhaled Oxygen Concentration - - Weight 101.6 kg (224 lb) 04/28/2025 11:04 AM EDT Height 172.7 cm (5' 7.99 ) 04/28/2025 11:04 AM E DT Body Mass Index 34.07 04/28/2025 11:04 AM EDT Plan of Treatment Upcoming Encounters Date Type Department Care Team (Late st Contact Info) Description 04/28/2025 Procedure Pass [facility] [address] [place] [address] 10/28/2025 2:00 PM EST Appointment Echo [facility] [address] [place] [address] Golden Molina, 22 [facility] [address] [place] [id number] [email or web address] 11/07/2025 11:30 AM EST Office Visit [facility] [address] [place] [address] Unknown, Unknown, Lana Lu, REJI [address] [place] [address] [email or web address] 11/18/2025 12:45 PM EST Office Visit [facility] [address] [place] [address] [address] Floor, [address] [place] [address] Golden Molina, DO 22 [facility] [address] [place] [id number] [email or web address] Health Maintenance Due Date Last Done Comments TSH LEVEL 1941 LIPID PANEL 1959 ZOSTER VACCINES (1 of 2) 1991 OSTEOPOROSIS SCREENING INITIAL (ONE-TIME) 2006 CREATININE LEVEL 08/14/2019 08/14/2018, , 06/27/2018 POTASSIUM LEVEL 08/14/2019 08/14/2018, 07/23, 06/27/2018 DEPRESSION SCREENING 03/08/2024 03/08/2023, 03/08/20 INFLUENZA VACCINE (#1) 2025 , 08/15/2022, 08/25/2021, Additional history exists COVID-19 VACCINE ( season) 2025 03/27/2023, 08/15/2022, 08/15/2022, Additional history exists Adult Td,Tdap Booster 04/16/2032 04/16/2022 , 11/23/2015, 11/29/2005 PNEUMOCOCCAL VACCINES (50+ years) Completed 11/23/2015, 10/10/2006 RSV VACCINE Completed 08/16/2023 HEPATITIS A VACCINES Aged Out No long er eligible based on patient's age to complete this topic HIB VACCINES Aged Out No longer eligi ble based on patient's age to complete this topic MENINGOCOCCAL VACCINES (ACWY) Aged Out No longer eligible based on patient's age to complete this topic MENINGOCOCCAL VACCINES (B) Aged Out N o longer eligible based on patient's age to complete this topic Medical Devices Not on file Procedures Procedure Name Priority Date/Time Associated Diagnosis Comments US LOWER EXTREMITY VEINS REFLUX EVALUATION DUPLEX COMPLETE (BILATERAL) Routine 07/25/2025 3:47 PM EDT Cardiac murmur, unspecified BASIC METABOLIC PANEL (BMP) Routine 08/14/2018 5:45 AM EDT Arthrofibrosis of total knee replacement, initial encounter from Last 3 Months or Most Recently Relevant to Health Maintenance Results * US Lower Extremity Veins Reflux Evaluation Duplex Complete (Bilateral) (07/25/2025 3:47 PM EDT) Height 173 cm Weight 102 kg RIGHT GREAT SAPH VEIN SAPHENO-FEM JUNCT VALVE CLOSURE TIME 3.6 sec GSV Vein Sapheno-Femoral Junction Kaylee Transverse 0.6 cm Prox Great Saphenous Vein Thigh Valve Closure Time 1.8 sec Prox Great Saphenous Vein Thigh Diameter Transverse 0.5 cm Mid Great Saphenous Vein Thigh Valve Closure Time 1.9 sec Mid Great Saphenous Vein Thigh Diameter Transverse 0.5 cm Dist Great Saphenous Vein Thigh Valve Closure Time 1.0 sec Dist Great Saphenous Vein Thigh Diameter Transverse 0.5 cm Knee Great Saphenous Vein Valve Closure Time 0.5 sec Knee Great Saphenous Vein Diameter Transverse 0.2 cm Prox Great Saphenous Vein Calf Valve Closure Time 4.7 sec Prox Great Saphenous Vein Calf Diameter Transverse 0.3 cm Mid Great Saphenous Vein Calf Valve Closure Time 0.4 sec Mid Great Saphenous Vein Calf Diameter Transverse 2.7 cm Dist Great Saphenous Vein Calf Valve Closure Time 1.4 sec Dist Great Saphenous Vein Calf Diameter Transverse 0.2 cm Popliteal Fossa GSV Diameter Transverse 0.0 cm Prox Small Saphenous Vein Calf Valve Closure Time 0.1 sec Mid Small Saphenous Vein Calf Valve Closure Time 2.9 sec Mid Small Saphenous Vein Calf Diameter Transverse 0.2 cm Dist Small Saphenous Vein Calf Valve Closure Time 2.0 sec Dist Small Saphenous Vein Calf Diameter Transverse 0.4 cm Common Femoral Valve Closure Time 4.3 sec Great Saphenous Vein Sapheno-Femoral Junction Kaylee Transverse 0.7 cm Prox Great Saphenous Vein Thigh Diameter Transverse 0.6 cm Mid Great Saphenous Vein Thigh Diameter Transverse 0.4 cm Dist Great Saphenous Vein Thigh Diameter Transverse 0.4 cm Knee Great Saphenous Vein Diameter Transverse 0.4 cm Prox Great Saphenous Vein Calf Valve Closure Time 1.2 sec Prox Great Saphenous Vein Calf Diameter Transverse 0.3 cm Mid Great Saphenous Vein Calf Valve Closure Time 1.3 sec Mid Great Saphenous Vein Calf Diameter Transverse 0.2 cm Common Femoral Vein Valve Closure Time 2.7 sec Anatomical Region Laterality Modality Ultrasound Narrative 07/28/2025 7:27 AM EDT Findings: Impression: There is no evidence of acute deep superficial venous thrombus in either lower extremity. 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 The great saphenous vein is incompetent as reported above: largest diameter 0.55cm, smallest diameter 0.17cm the greatest reflux time is 4.7 seconds The small saphenous vein is incompetent as reported above: largest diameter 0.43cm, smallest diameter 0.10cm the greatest reflux time is 2.9-second Left lower venous: There is deep system valvular incompetence of the common femoral and proximal femoral veins. The great saphenous vein is incompetent in the proximal and mid calf only: largest diameter 0.73cm, smallest diameter 0.26cm. There is minimal reflux in the left great saphenous vein. The small saphenous vein is competent. Lower Venous Left COMMON FEMORAL VEIN normal compressibility and flow characteristics FEMORAL VEIN normal compressibility and flow characteristics; Proximal femoral vein reflux 3.4s. POPLITEAL VEIN normal compressibility and flow characteristics GASTROCNEMIUS normal compressibility and flow characteristics POSTERIOR TIBIAL VEINS normal compressibility and flow characteristics PERONEAL VEINS normal compressibility and flow characteristics GREAT SAPHENOUS VEIN normal compressibility and flow characteristics SMALL SAPHENOUS VEIN normal compressibility and flow characteristics GREAT SAPHENOUS VEIN REFLUX FINDINGS Sapheno-Femoral Junction: no reflux Proximal thigh: no reflux Mid thigh: no reflux Distal thigh: no reflux Proximal calf: reflux present Mid calf: reflux present Distal calf: no reflux SMALL SAPHENOUS VEIN REFLUX FINDINGS Proximal calf: no reflux Mid calf: no reflux Distal calf: no reflux OTHER REFLUX FINDINGS Common Femoral Vein: reflux present Lower Venous Right COMMON FEMORAL VEIN normal compressibility and flow characteristics FEMORAL VEIN normal compressibility and flow characteristics POPLITEAL VEIN normal compressibility and flow characteristics GASTROCNEMIUS normal compressibility and flow characteristics POSTERIOR TIBIAL VEINS normal compressibility and flow characteristics PERONEAL VEINS normal compressibility and flow characteristics GREAT SAPHENOUS VEIN normal compressibility and flow characteristics SMALL SAPHENOUS VEIN normal compressibility and flow characteristics GREAT SAPHENOUS VEIN REFLUX FINDINGS Sapheno-Femoral Junction: reflux present Proximal thigh: reflux present Mid thigh: reflux present Distal thigh: reflux present Knee: reflux present Proximal calf: reflux present Mid calf: reflux present Distal calf: reflux present SMALL SAPHENOUS VEIN REFLUX FINDINGS Proximal calf: reflux present Mid calf: reflux present Distal calf: reflux present OTHER REFLUX FINDINGS Common Femoral Vein: reflux present Introductory Comments Techniques used for this study included: color flow Doppler and spectral waveform Doppler. us Golden Molina DO US VASCULAR Final Result * Basic metabolic panel (08/14/2018 5:45 AM EDT) SODIUM 144 133 - 146 mmol/L [facility] CHLORIDE 101 96 - 108 mmol/L [facility] POTASSIUM 4.7 3.3 - 5.1 mmol/L [facility] CO2 31 21 - 35 mmol/L [facility] BUN 15 6 - 19 mg/dL [facility] CREATININE 0.60 0.5 - 1.5 mg/dL [facility] GLUCOSE 92 70 - 99 mg/dL [facility] CALCIUM 9.1 8.4 - 10.3 mg/dL [facility] EGFR 89 >59 mL/min/1.7 3m2 [facility] Comment:If patient is black, multiply result by 1.159. Estimated glomerular filtration rate calculated using the CKD-EPI equation. ANION GAP 17 10 - 20 mmol/L [facility] Blood 08/14/2018 5:45 AM EDT 08/14/2018 10:33 AM EDT us Kwame Beavers MD LAB BLOOD BKR ORDERABLES Final R esult [facility] [address] [place] [address] from Last 3 Months or Most Recently Relevant to Health Maintenance Insurance [facility] MEDICARE REPLACEMENT [facility] [address]IC[address] [place] [address] [place] [address] [place] [address] [facility] [address] [facility] MEDIC[facility] [place] [address] [place] [address] MEDICARE REPLACEMENT MEDIC[place] [place] [address] [facility] MEDICARE REPLACEMENT Care Teams Candy Roller Relationship Specialty Start Date End Date Lexx Duarte DO [address] [facility] [address] [place] [address] PCP - General Family Medicine 09/20/23 Sharri Rivera MD [email or web address] Geriatric Medicine 09/11/23 Additional Source Comments The information contained in this document represents components of the legal health record. It is not the complete legal health record.[facility]
--- OUTSIDE RECORDS SUMMARY | 2025-08-28 13:26 | XMS_ITS | Encounter Summary ---
Author Organization [facility] Address [address] [facility] [address] [place] [phone] Phone Care Team Providers Care Rug Drying Machine Operator Name Role Phone Doris Michelle MD Primary Care Provider [phone] Sharri Rivera MD Unavailable [phone] Lexx Duarte DO Primary Care Provider Encounter Details Date Type Department Care Team (Late st Contact Info) Description 12/11/2019 Procedure Pass [address] [address] Social History Tobacco Use Types Packs/Day Years Used Date Smoking Tobacco: Former Cigarettes Q uit: 1984 Smokeless Tobacco: Never Comments No Sex and Gender Information Value Date Recorded Sex Assigned at Female 06/29/2021 11:50 AM EDT Legal Sex Female 10:12 PM EDT Gender Identity Female 06/29/2021 11:50 AM EDT Sexual Orientation Not on file documented as of this encounter Last Filed Vital Signs Vital Sign Reading Time Taken Comments Blood Pressure - - Pulse - - Temperature - - Respiratory Rate - - Oxygen Saturation - - Inhaled Oxygen Concentration - - Weight 93 kg (205 lb) 12/14/2019 9:15 AM EST Height 172.7 cm (5' 8 ) 12/14/2019 9:15 AM EST Body Mass Index 31.17 12/14/2019 9:15 AM EST documented in this encounter Plan of Treatment Upcoming Encounters Date Type Department Care Team (Late st Contact Info) Description 04/28/2025 Procedure Pass [facility] [place] [address] [place] [address] 10/28/2025 2:00 PM EST Appointment Echo Lab [address] [place] [address] Golden Molina, DO [address] [address] 11/07/2025 11:30 AM EST Office Visit [facility] [address] [place] [address] Unknown, Unknown, Lana Lu PA-C [address] [address] [email or web address] 11/18/2025 12:45 PM EST Office Visit [facility] [address] [place] [address] 3rd Floor, [address] [place] [address] Golden Molina, DO [address] [place] [phone] documented as of this encounter Visit Diagnoses Not on filedocumented in this encounter Care Teams Rug Drying Machine Operator Relationship Specialty Start Date End Date Doris Michelle MD [address] [place] [address] [email or web address] PCP - General Family Medicine 06/17/1908/24 Lexx Duarte DO [address] [address] PCP - General Family Medicine 09/20/23 Sharri Rivera MD [address] [place] [address] Geriatric Medicine 09/11/23 documented as of this encounter Additional Source Comments The information contained in this document represents components of the legal health record. It is not the complete legal health record.[facility]
--- OUTSIDE RECORDS SUMMARY | 2025-08-28 13:26 | XMS_ITS | Encounter Summary ---
Author Organization [facility] Address [address] [facility] [address] [place] [address] Phone Care Team Providers Care Account Group Supervisor Name Role Phone Doris Michelle MD Primary Care Provider [phone] Sharri Rivera MD Unavailable [phone] Lexx Duarte DO Primary Care Provider Encounter Details Date Type Department Care Team (Late st Contact Info) Description 08/08/2022 Procedure Pass [facility] [address] [place] [address] Social History Tobacco Use Types Packs/Day Years [...] Info) Description 04/28/2025 Procedure Pass [facility] [address] [place] [address] 10/28/2025 2:00 PM EST Appointment [facility] [address] [place] [id number] Golden Molina, DO [facility] [address] [place] [phone] [email or web address] 11/07/2025 11:30 AM EST Office Visit [facility] [address] [place] [address] Unknown, Unknown, Lana Lu PA-C [address] [address] [email or web address] 11/18/2025 12:45 PM EST Office Visit [facility] [address] [facility] 3rd Floor, [address] [place] [address] Golden Molina DO 22 [facility] [address] [place] [phone] documented as of this encounter Visit Diagnoses Not on filedocumented in this encounter Care Teams Account Group Supervisor Relationship Specialty Start Date End Date Doris Michelle MD [address] [place] [address] [email or web address] PCP - General Family Medicine 06/17/1908/24 Lexx Duarte DO [address] [address] PCP - General Family Medicine 09/20/23 Sharri Rivera MD [address] [place] [address] [email or web address] Geriatric Medicine 09/11/23 documented as of this encounter Additional Source Comments The information contained in this document represents components of the legal health record. It is not the complete legal health record.[facility]
== END 2025-08-28 11:00 | disposition home or self-care (01) ==
LOC: CF 10:59
DX: Z13.89 Encounter for screening for other disorder (principal)

== ENCOUNTER 2025-09-08 10:35 | Outpatient (AMB) | payer MEDICARE, SELFPAY ==
--- NOTE | 2025-09-08 11:05 | A.SPINEOV_ITS ---
Intake Visit Reasons: back pain Intake Note: Ms. Barakat is here today c/o back pain. MRI is in our system via [facility]. Vacuum Cleaner Assembler Required: No Allergies lisinopril Adverse Reaction (Mild, Verified 09/08/25 11:07) Cough Assessment & Plan Assessment & Plan (1) Back pain: Code(s): M54.9 - Dorsalgia, unspecified Category: Medical Plan Dear Gerald, Thank you for referring Mrs Barakat to our office today. She is a very nice 85-year-old female presents to the office today for evaluation of MRI showing multilevel degenerative disc disease in the setting of back pain. She has had the pain for many years. It changes its location from time to time from in maybe the lower thoracic area to the right side and then might go to the left side on another day. Some days it is intense other days it is more manageable. She takes Tylenol and gabapentin. She had gone through physical therapy but ran out of sessions to continue with. She did undergo an injection at [facility] pain management without any success. They are considering doing radiofrequency ablation on her. PMH: Hypertension, aortic aneurysm, AFib, adrenal mass, bilateral knee replacement, watchman surgery, lumpectomy, left ankle ligament surgery. Social hx: Occasionally smokes marijuana but other than that no tobacco or alcohol use Medications: Please see the [employer] list included Allergies: Lisinopril Physical exam: Awake alert oriented no acute distress, able to stand up out of a chair independently but is uncomfortable, strength is limited secondary to pain with hip flexion but no focal motor deficits. Reflexes 2+ and symmetric at the patella. Imaging review: Lumbar MRI done at [facility] shows multilevel degenerative disc disease in the thoracic and the lumbar spine. She has a slight scoliotic curvature with the apex is about it the thoracolumbar junction. She has varying degrees of [id number] foraminal stenosis throughout her lumbar spine. Impression: 85-year-old female presents for intermittent but persistent back pain in multiple locations including her thoracic and lumbar, she has some good days and bad days some worse some better, and has multilevel degenerative disc disease throughout most of her lumbar spine and parts of her thoracic with a slight scoliotic curvature with the apex about at the thoracic spine junction with the lumbar area. Unfortunately she is in the group of patients who have diffuse degenerative disc disease that generally does not respond well to surgery. Especially given that she is well into her 80s and likely her bone quality is poor. Surgery for this kind of situation usually involves correcting the scoliosis or fusing multiple levels of degenerative discs but I think her bone quality will not be able to sustain and she would be high risk for any surgical intervention. I recommended she follow up with PT and further pain management for ongoing treatment of her back pain. Thank you for allowing us to care for your patient. The total time spent with this visit with this patient was 45 minutes reviewing history, physical exam, thoracic and lumbar imaging review, and implementation of treatment plan or further diagnostic testing Cruz Cabrales MD,PhD [facility] Coding Level of Care Code New Pt Level 4 (89872) Diagnoses Back pain M54.9
== END 2025-09-08 11:59 | disposition home or self-care (01) ==
LOC: HO.HNS 10:36
PROVIDERS: PCP Nurse Practitioner Family; Referring Provider Family Medicine; Visit Provider Physician Assistant
DX: M54.9 Dorsalgia, unspecified (principal)
CPT/HCPCS: 99204

== ENCOUNTER → 2025-09-08 10:35 | Outpatient (BNVA) | payer MEDICARE, SELFPAY | PROVIDERS: PCP Nurse Practitioner Family; Referring Provider Family Medicine; Visit Provider Physician Assistant | DX: M54.9 Dorsalgia, unspecified (principal) | CPT/HCPCS: 99202 ==